=== PATIENT | female | born 1990 | race Hispanic/Latino ===

== ENCOUNTER 2017-01-15 19:27 | Emergency (ER) | payer OTHER ==
[2017-01-15 19:41] VITALS: BP 161/95; RESP 18; TEMP 97.5; O2SAT 100
[2017-01-15 21:00] LABS: BASO % 0.6 % (0.0-2.0); EOS # 0.2 K/uL (0.0-0.7); EOS % 2.9 % (0.0-4.0); HEMATOCRIT 39.6 % (34.0-47.0); LYMPH # 2.8 K/uL (1.0-4.3); LYMPH % 34.6 % (20.0-40.0); MEAN CELL VOLUME 90.2 fl (81.0-99.0); MEAN CORPUSCULAR HEMOGLOBIN 30.3 pg (27.0-31.0); MEAN CORPUSCULAR HGB CONC 33.6 g/dL (33.0-37.0); MEAN PLATELET VOLUME 8.5 fl (7.2-11.7); MONO # 0.6 K/uL (0.0-0.8); MONO % 7.2 % (0.0-10.0); NEUT # 4.4 K/uL (1.8-7.0); NEUT % 54.7 % (50.0-75.0); NRBC % 0.1 % (0.0-0.0); RED CELL DISTRIBUTION WIDTH 12.9 % (11.5-14.5)
[2017-01-15 21:11] LABS: ALB/GLOB RATIO 1.5 (1.0-2.1); ALKALINE PHOSPHATASE 44 U/L (38-126); ALT/SGPT 28 U/L (9-52); AST/SGOT 34 U/L (14-36); BILIRUBIN,TOTAL 0.5 mg/dl (0.2-1.3); BLOOD UREA NITROGEN 10 mg/dl (7-17); CALCIUM 9.9 mg/dL (8.4-10.2); CARBON DIOXIDE 21 mmol/L (22-30); CHLORIDE 106 mmol/L (98-107); GFR AFRICAN-AMERICAN > 60; GLUCOSE,RANDOM 93 mg/dL (65-105); POTASSIUM 3.7 MMOL/L (3.6-5.0); SODIUM 140 mmol/l (132-148); TOTAL PROTEIN 8.1 G/DL (6.3-8.2)
[2017-01-15 22:21] LABS: RBC URINE 3 /hpf (0-3); URINE BACTERIA RARE (<OCC); URINE BILIRUBIN NEGATIVE (NEGATIVE); URINE BLOOD LARGE (NEGATIVE); URINE COLOR STRAW (YELLOW); URINE GLUCOSE (UA) NEG (Normal); URINE KETONE NEGATIVE (NEGATIVE); URINE LEUKOCYTE ESTERASE TRACE Leu/uL (Negative); URINE PROTEIN NEGATIVE (NEGATIVE); URINE UROBILINOGEN 0.2-1.0 mg/dL (0.2-1.0); WBC URINE 1 /hpf (0-5)
--- NOTE | 2017-01-15 22:22 | ED PDOC ---
HPI: General Adult Time Seen by Provider: 01/15/17 19:52 Chief Complaint (Nursing): Palpitations Chief Complaint (Provider): palpitations, chest pain History Per: Patient History/Exam Limitations: no limitations Current Symptoms Are (Timing): Intermittent Episodes Severity: Severe Additional Complaint(s): 26yo female hx seasonal allergies now presents c/o ongoing chest discomfort ( tightness centrally) associated with palpitations, started while she was in [place], progressed after return home. She thought related to her control which she stopped friday. Was seen recently by ENT for allergies, has been taking zyrtec for about a month. Denies orthopnea, pain or swelling in legs , syncope or hemoptysis. Denies family history of blood clots. Denies fam hx of premature cardiac . Denies vomiting, drug use or alcohol abuse. Admits to feeling anxious. Past Medical History Reviewed: Historical Data, Nursing Documentation, Vital Signs Vital Signs: Last Vital Signs Temp 97.5 F L 01/15/17 19:35 Pulse 115 H 01/15/17 19:35 Resp 18 01/15/17 19:35 BP 161/95 H 01/15/17 19:35 Pulse Ox 100 01/15/17 19:35 - Medical History Other PMH: seasonal allergies - Surgical History Surgical History: Tonsillectomy - Family History Family History: States: No Known Family Hx - Living Arrangements Living Arrangements: Other - Social History Current smoker - smoking cessation education provided: No Alcohol: Occasional Drugs: Denies - Allergies Allergies/Adverse Reactions: Allergies Allergy/AdvReac Type Severity Reaction Status Date / Time Sulfa (Sulfonamide Allergy ITCHING Verified 01/15/17 19:35 Antibiotics) sulfamethoxazole Allergy ITCHING Verified 01/15/17 19:35 [From Bactrim] trimethoprim [From Bactrim] Allergy ITCHING Verified 01/15/17 19:35 Review of Systems ROS Statement: Except As Marked, All Systems Reviewed And Found Negative Constitutional: Negative for: Fever, Chills ENT: Negative for: Nose Pain, Throat Pain, Throat Swelling Cardiovascular: Positive for: Chest Pain, Palpitations. Negative for: Light Headedness Respiratory: Positive for: Shortness of Breath. Negative for: Cough, SOB with Exertion, Sputum, Wheezing Gastrointestinal: Negative for: Nausea, Vomiting, Abdominal Pain Genitourinary Female: Negative for: Dysuria Musculoskeletal: Negative for: Neck Pain, Shoulder Pain, Back Pain, Leg Pain Skin: Negative for: Rash, Lesions, Jaundice Neurological: Negative for: Weakness, Numbness, Altered Mental Status, Headache , Dizziness Psych: Positive for: Anxiety. Negative for: Depression Physical Exam - Reviewed Nursing Documentation Reviewed: Yes Vital Signs Reviewed: Yes - Physical Exam Appears: Positive for: Non-toxic (anxious, tearful but speech clear) Head Exam: Positive for: ATRAUMATIC, NORMAL INSPECTION, NORMOCEPHALIC Skin: Positive for: Normal Color, Warm, DRY Eye Exam: Positive for: EOMI, Normal appearance, PERRL ENT: Positive for: Normal ENT Inspection Neck: Positive for: Normal, Painless ROM Cardiovascular/Chest: Positive for: Tachycardia Respiratory: Positive for: Normal Breath Sounds. Negative for: Wheezing, Respiratory Distress Pulses-Radial (L): 3+/4+ Pulses-Radial (R): 3+/4+ Gastrointestinal/Abdominal: Positive for: Bowel Sounds, Soft. Negative for: Tenderness Back: Positive for: Normal Inspection Extremity: Positive for: Normal ROM. Negative for: Deformity, Swelling Neurologic/Psych: Positive for: Alert, computer mechanic II-XII (intact), Oriented, Gait ( normal). Negative for: Motor/Sensory Deficits - Laboratory Results Result Diagrams: 01/15/17 20:55 01/15/17 20:55 - ECG ECG: Positive for: Interpreted By [facility] ECG Rhythm: Positive for: Sinus Tachycardia, Nonspecific Changes Rate: 126 O2 Sat by Pulse Oximetry: 100 Pulse Ox Interpretation: Normal - Radiology X-Ray: Interpreted by [facility] X-Ray Interpretation: No Acute Disease, Other (normal heart size) Medical Decision Making Medical Decision Making: Workup initiated for ongoing chest symptoms with anxiety. On OCP, stopped 3 days ago, will r/o PE, ACS, pneumothorax, pneumomediastinum, anxiety attack, also consider esophagitis, pleurisy or other diagnosis not listed. ativan 0.5mg IV ordered for relief of symptoms. teletypesetter monitor maintained. Parents arrived bedside, initial impressions discussed. labs reviewed, all unremarkable incld DDimer, trop and BNP. Repeat EKG performed. Disposition - Disposition Condition: STABLE
[2017-01-15 22:24] VITALS: PULSE 126
--- NOTE | 2017-01-16 10:59 | RAD ---
HISTORY: SOb CP COMPARISON: OpenNo prior. TECHNIQUE: Chest PA and lateral FINDINGS: LUNGS: No active pulmonary disease. PLEURA: No significant pleural effusion identified. No pneumothorax apparent. CARDIOVASCULAR: Normal. OSSEOUS STRUCTURES: No significant abnormalities. VISUALIZED UPPER ABDOMEN: Normal. OTHER FINDINGS: None. IMPRESSION: No active disease.
--- NOTE | 2017-01-17 18:55 | CARD ---
APPROVED REPORT EKG Measurement Heart [id number] NM [id number] <Conclusion> Normal sinus rhythm Normal ECG
--- NOTE | 2017-01-17 18:56 | CARD ---
APPROVED REPORT EKG Measurement Heart [id number] ID [id number] <Conclusion> Sinus tachycardia Cannot rule out Anterior infarct, age undetermined Abnormal ECG
== END 2017-01-15 23:00 | disposition home or self-care (01) ==
LOC: H.ER 19:27
DX: R00.2 Palpitations (principal); R06.02 Shortness of breath; R07.9 Chest pain, unspecified